=== PATIENT | male | born 1950 | race Caucasian/White ===

== ENCOUNTER 2018-12-05 15:40 | Emergency (ER) | payer MEDICARE, SELFPAY ==
[2018-12-05 15:54] VITALS: BP 177/88; PULSE 70; RESP 17; TEMP 36.6; O2SAT 98
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
[2018-12-05 17:22] VITALS: BP 150/86; PULSE 77; RESP 17; O2SAT 99
[2018-12-05] MEDS: SILVER SULFADIAZINE 1% CREAM 25 GM 1 APPLIC TOP (17:26)
[2018-12-05 17:49] VITALS: BP 129/76; PULSE 77; RESP 16; O2SAT 99
== END 2018-12-05 17:27 | disposition home or self-care (01) ==
PROVIDERS: Emergency Provider Emergency Medicine
DX: T22.031A Burn of unspecified degree of right upper arm, initial encounter (principal); T21.03XA Burn of unspecified degree of upper back, initial encounter; T31.0 Burns involving less than 10% of body surface
CPT/HCPCS: 99283